=== PATIENT | male | born 1990 | race Hispanic/Latino ===

== ENCOUNTER 2025-01-06 23:16 | Emergency (ER) | payer SELFPAY ==
[2025-01-06 23:27] VITALS: BP 146/110; PULSE 71; RESP 16; TEMP 36.1; O2SAT 100
--- NOTE | 2025-01-06 23:38 | ED.DENTAL ---
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 Ongoing since earlier this morning. Denies fevers, redness, swelling. MD Complaint: tooth pain Location: Tooth # (32) Related Data Allergies Allergy/AdvReac Type Severity Reaction Status Date / Time No Known Allergies Allergy Verified 01/06/25 23:28 Review of Systems Review of Systems: All systems reviewed & are unremarkable except as noted in HPI and below PMFSH Past Medical History Medical History (Updated 01/06/25 @ 23:39 by Holly Boston PA-C) No active medical problems Social History Social History (Updated 01/06/25 @ 23:39 by Holly Boston PA-C) Smoking status: Never smoker Exam Narrative: GENERAL: Well-appearing, well-nourished, and in no acute distress. HEAD: Normocephalic, atraumatic. EYES: EOMI. ENT: Nares clear, no rhinorrhea or epistaxis. Mucous membranes moist. Oropharynx without tonsillar hypertrophy exudate or other lesions. Floor of mouth is soft. Tooth number 32 tender to palpation, without surrounding edema or fluctuance to suggest abscess NECK: Supple. No adenopathy or masses CHEST: No respiratory distress. HEART: Regular rate EXTREMITIES: Normal range of motion. No edema. SKIN: Warm, dry, no rash. NEURO: No focal deficits. Alert and oriented x3. PSYCH: Normal mood and affect Course Vital Signs Vital signs: Vital Signs Temperature 96.9 F L 01/06/25 23:27 Pulse Rate 71 01/06/25 23:27 Respiratory Rate 01/06/25 23:27 Blood Pressure 146/110 H 01/06/25 23:27 Pulse Oximetry 100 01/06/25 23:27 Oxygen Delivery Room Air 01/06/25 23:27 Temperature 96.9 F L 01/06/25 23:27 Pulse Rate 71 01/06/25 23:27 Respiratory Rate 16 01/06/25 23:27 Blood Pressure 146/110 H 01/06/25 23:27 Pulse Oximetry 100 01/06/25 23:27 Oxygen Delivery Room Air 01/06/25 23:27 MDM - Dental/Oral MDM Narrative Medical decision making narrative: Patient presents the emergency department for toothache. No evidence for abscess on exam. Patient is afebrile and nontoxic appearing. Will be started on oral antibiotics, instructed to follow-up with a dentist. He was given warnings to return to the ER Differential Diagnosis Differential diagnosis: Likely dental caries, toothache and dental abscess Critical Care Time Critical Care Time Critical Care Time: No Discharge Plan Discharge Clinical Impression: Toothache Patient Disposition: Home Condition: Stable Instructions: Antibiotic Form, Toothache (ED) Additional Instructions: Return to the Emergency Department if you experience fever >101, increasing swelling and redness of your tooth, or any other symptoms that are concerning to you Take antibiotic as prescribed. Tylenol or Ibuprofen as needed for pain. Follow up with a dentist Patient Language: Yakut Prescriptions: New amoxicillin-pot clavulanate 875-125 mg tablet 1 tablet PO Q12H 7 Days Qty: 14 0RF Follow-up/Referrals: UNKNOWN,DOCTOR [Primary Care Provider] -
[2025-01-06] MEDS: AMOXICILLIN/CLAVULANATE K 875-125 MG TAB 1 TABLET PO (23:45)
[2025-01-06] MEDS: HYDROcodone/acetaminophen (*CRX) 5-325 MG TABLET 1 TAB PO (23:46)
== END 2025-01-06 23:54 | disposition home or self-care (01) ==
LOC: ANHED 23:43
PROVIDERS: Emergency Provider Physician Assistant
DX: K08.89 Other specified disorders of teeth and supporting structures (principal)
CPT/HCPCS: 99283; A9270